=== PATIENT | female | born 1965 | race Caucasian/White ===

== ENCOUNTER 2018-06-30 13:33 | Emergency (ER) | payer OTHER ==
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
[2018-06-30 17:01] LABS: Urine Specific Gravity 1.015 (1.005-1.030)
[2018-06-30 17:02] LABS: Urine Blood NEGATIVE (NEG); Urine Glucose NEGATIVE (NEG); Urine Protein NEGATIVE (NEG); Urine Specific Gravity 1.015 (1.005-1.030); Urine pH 7.5 (5.0-7.0)
[2018-07-01 14:49] VITALS: BP 129/56; TEMP 98; O2SAT 100
== END 2018-06-30 16:10 | disposition home or self-care (01) ==
LOC: ER 13:33
DX: G89.11 Acute pain due to trauma (principal); V49.40XA Driver injured in collision with unspecified motor vehicles in traffic accident, initial encounter; Z88.0 Allergy status to penicillin; Z88.1 Allergy status to other antibiotic agents; Z88.2 Allergy status to sulfonamides; Z88.3 Allergy status to other anti-infective agents; Z88.8 Allergy status to other drugs, medicaments and biological substances
CPT/HCPCS: 71045; 72040; 72170; 81003; 81025; 99284